=== PATIENT | male | born 1990 ===

== ENCOUNTER 2025-04-23 12:55 | Outpatient (REF) | payer OTHER, SELFPAY ==
--- NOTE | 2025-04-23 | EMG_ITS ---
Chief complaint: Numbness Reason for referral: CTS and Peripheral neuropathy Referred by:?Dr Bey Procedure done: Nerve conduction study upper extremities Bilateral median and ulnar motor and sensory studies were performed bilateral radial sensory study was performed an EMG needle examination was performed. Impression: [id number] bilateral median neuropathy across carpal tunnel MTDD
--- OUTSIDE RECORDS SUMMARY | 2025-04-23 15:14 | XMS_ITS | Clinical Summary ---
Author Organization [facility] Address [address] [place] [address] Care Team Providers Care Fishing Vessel Deckhand Name Role Phone Unavailable Primary Care Provider Unavailabl e Source Comments PLEASE NOTE, if this patient is a minor, it may be UNLAWFUL to discuss sensitive information that is contained in these records (such as FAMILY PLANNING, MENTAL HEALTH or SUBSTANCE ABUSE) with the minor patient's parent or other person without the patient's specific authorization.[facility] Social History Tobacco Use Types Packs/Day Years Used Date Smoking Tobacco: Never Assessed Social Connections Answer Date Recorded Social Connections and Isolation 0 02/08/2022 Financial Resource Strain Answer Date R ecorded Financial Resource Strain 0 2021 Stress Answer Date Recorded Stress 0 02/08/2022 Physical Activity Answer Date Recorded Physical Activity 0 02/08/2022 Food Insecurity Answer Date Recorded Food 0 02/08/2022 Transportation Needs Answer Date Record ed Transportation 0 02/08/2022 Housing Stability Answer Date Recorded Housing 0 02/08/2022 Safety and Environment Answer Date Jhon rded Safety 0 02/08/2022 Utilities Answer Date Recorded Utilities 0 02/08/2022 Employment Answer Date Recorded Employment 0 02/08/2022 Sex and Gender Information Value Date Recorded Sex Assigned at Not on file Legal Sex Male 12:02 PM PDT Gender Identity Not on file Sexual Orientation Not on file Plan of Treatment Not on file
--- OUTSIDE RECORDS SUMMARY | 2025-04-23 15:14 | XMS_ITS | Clinical Summary ---
Author Organization [facility] Address [address] [place] [address] Phone Care Team Providers Care Squaring Machine Operator Name Role Phone Pcp, Unknown Primary Care Provider Unavailabl e Allergies No known active allergies Social History Tobacco Use Types Packs/Day Years Used Date Smoking Tobacco: Never Assessed Education Answer Date Recorded Are you interested in more education? Not on tyler e 05/03/2024 Are you concerned about learning? Not on file 05/03/2024 No 05/03/2024 No 05/03/2024 Digital Access Answer Date Recorded No 05/03/2024 No 05/03/2024 Reliable internet access at home? Not on file 05/03/2024 Device with a working camera? Not on file Intimate Partner Violence Answer Date R ecorded Are you denied basic needs s uch as food, clothing, or medical care? No 05/02/2024 In the past 12 months have y ou been in a relationship with a person who hurts, threatens, or tries to control you? No 05/02/2024 Are you denied basic needs s uch as food, clothing, or medical care? No 05/02/2024 In the past 12 months have y ou been in a relationship with a person who hurts, threatens, or tries to control you? No 05/02/2024 Comments Unknown Sex and Gender Information Value Date Recorded Sex Assigned at Unknown 05/02/2024 5:00 PM EDT Legal Sex Male 4:38 PM EDT Gender Identity Male 05/02/2024 5:00 PM EDT Sexual Orientation Don't know 05/02/2024 5: 00 PM EDT Last Filed Vital Signs Vital Sign Reading Time Taken Comments Blood Pressure 135/82 05/02/2024 7:29 PM EDT Pulse 91 05/02/2024 7:29 PM EDT Temperature 36.9 C (98.4 F) 05/02/2024 7:29 PM EDT Respiratory Rate 18 05/02/2024 7:29 PM EDT Oxygen Saturation 99% 05/02/2024 7:29 PM EDT Inhaled Oxygen Concentration - - Weight 94.3 kg (208 lb) 05/02/2024 4:51 PM EDT Height 177.8 cm (5' 10 ) 05/02/2024 4:51 PM EDT Body Mass Index 29.84 05/02/2024 4:51 PM EDT Plan of Treatment Health Maintenance Due Date Last Done Comments Adult Td,Tdap Booster 1989 LIPID PANEL 1989 DEPRESSION SCREENING 2001 SMOKING Hx and SMOKELESS TOB ACCO SCREENING 2002 HEPATITIS C SCREENING 2007 HIV ONE-TIME SCREENING (18-6 5 YEARS) 2007 SCREENING FOR DIABETES 2024 INFLUENZA VACCINE (#1) 2025 COVID-19 VACCINE ( - 2023-2 5 season) 2025 HEPATITIS A VACCINES Aged Out No long er eligible based on patient's age to complete this topic HIB VACCINES Aged Out No longer eligi ble based on patient's age to complete this topic MENINGOCOCCAL VACCINES (ACWY) Aged Out No longer eligible based on patient's age to complete this topic MENINGOCOCCAL VACCINES (B) Aged Out N o longer eligible based on patient's age to complete this topic PNEUMOCOCCAL VACCINES (0-49 years) Aged Out No longer eligible based on patient's age to complete this topic Medical Devices Not on file Insurance [employer] HEALTH SAFETY NET FULL Member Subscriber Plan / Payer (Ef fective 2024-Present) Name:Suzi Yoan Relation to Subscriber:Self Name:ArcherYoan hutchins Payer ID:Not on file Group ID:Not on file Type:Medicaid Address: [address] [employer] [place] [address] LIMITED HEALTH SAFETY NET FULL Member Subscriber Plan / Payer (Ef fective 2024-Present) Name:Yoan Archer Relation to Subscriber:Self Name:Yoan Archer Payer ID:Not on file Group ID:Not on file Type:Medicaid Address: [address] [employer] [facility] FULL Member Subscriber Plan / Payer (Ef fective 2024-Present) Name:Yoan Archer Relation to Subscriber:Self Name:ArcherMoustaphaYoan Payer ID:Not on file Group ID:Not on file Type:Medicaid Address: [address] [facility] [employer] NET FULL Member Subscriber Plan / Payer (Ef fective 2024-Present) Name:Yoan Archer Relation to Subscriber:Self Name:Yoan Archer Payer ID:Not on file Group ID:Not on file Type:Medicaid [address] [facility] SAFETY NET FULL Member Subscriber Plan / Payer (Ef fective 2024-Present) Name:Yoan Archer Relation to Subscriber:Self Name:Yoan Archer Payer ID:Not on file Group ID:Not on file Type:Medicaid [address] [facility] LIMITED PENDING S[facility] FULL Member Subscriber Plan / Payer (Ef fective 2024-Present) Name:Yoan Archer Relation to Subscriber:Self Name:Yoan Archer Payer ID:Not on file Group ID:Not on file Type:Medicaid Address: [address] [employer] Care Teams Squaring Machine Operator Relationship Specialty Start Date End Date Pcp, Unknown PCP - General 05/02/24 Additional Source Comments The information contained in this document represents components of the legal health record. It is not the complete legal health record.[facility]
--- OUTSIDE RECORDS SUMMARY | 2025-04-23 15:14 | XMS_ITS | Encounter Summary ---
Author Organization [facility] Address [address] [place] [address] [place] [address] Phone Care Team Providers Care Rigger Name Role Phone Pcp, Unknown Primary Care Provider Unavailabl e Encounter Details Date Type Department Care Team (Late st Contact Info) Description 05/02/2024 Procedure Pass [facility], Ct Scan - [address] [address] Social History Tobacco Use Types Packs/Day Years [...] Don't know 05/02/2024 5: 00 PM EDT documented as of this encounter Functional Status * Calculated C-SSRS Risk Score (Lifetime/Recent) Answer Date of Assessment Author No Risk Indicated 05/02/2024 4:53 PM EDT Sofy Smith RN * [place] Suicide Severity Rating Scale (Screener/Recent Self-Report) Question Answer Date of Assessment Author 1. Wish to be (Past 1 Month) No 05/02/2024 4:53 PM EDT Suzanne Flores RN 2. Non-Specific Active Suicidal Thoughts (Past 1 Month) No 05/02/2024 4:53 PM EDT Suzanne Flores RN 6. Suicidal Behavior (Lifetime) No 05/02/2024 4:53 PM EDT Suzanne Flores RN documented as of this encounter Plan of Treatment Not on file documented as of this encounter Visit Diagnoses Not on filedocumented in this encounter Care Teams Rigger Relationship Specialty Start Date End Date Pcp, Unknown PCP - General 05/02/24 documented as of this encounter Additional Source Comments The information contained in this document represents components of the legal health record. It is not the complete legal health record.[facility]
--- OUTSIDE RECORDS SUMMARY | 2025-04-23 15:14 | XMS_ITS | Clinical Summary ---
Author Organization [facility] Address [address] [facility] 7 [place] [address] Care Team Providers Care Form Setter Steel Pan Forms Name Role Phone Unavailable Primary Care Provider Unavailabl e Social History Tobacco Use Types Packs/Day Years Used Date Smoking Tobacco: Never Assessed Sex and Gender Information Value Date Recorded Sex Assigned at Male 09/23/2023 9:45 AM EST Legal Sex Male 9:44 AM EST Gender Identity Male 09/23/2023 9:45 AM EST Sexual Orientation Straight 09/23/2023 9: 45 AM EST Plan of Treatment Health Maintenance Due Date Last Done Comments Depression Screening 1989 HIV Screening 1989 Lipid Panel 1989 SDOH Screening 1989 Disability Screening 1989 Alcohol/Substance Use Screening 2001 Tobacco Screening 2001 Family Planning (PISQ) 2004 HPV Vaccines (1 - Male 3-dos e series) 2004 Hepatitis C Screening 2007 DTaP/Tdap/Td Vaccines (1 - Tdap) 2008 Hepatitis B Vaccines (1 of 3 - 19+ 3-dose series) 2008 COVID-19 Vaccine (1 - 2023-2 5 season) 2025 Influenza Vaccine (#1) 2025 Zoster Vaccines (1 of 2) 2039 RSV Patients and Pa tients Aged 60 years or older (1 - 1-dose 75+ series) 2064 HIB Vaccines Aged Out No longer eligi ble based on patient's age to complete this topic Hepatitis A Vaccines Aged Out No long er eligible based on patient's age to complete this topic IPV Vaccines Aged Out No longer eligi ble based on patient's age to complete this topic Meningococcal B Vaccine Aged Out No l onger eligible based on patient's age to complete this topic Meningococcal Vaccine Aged Out No lucina bill eligible based on patient's age to complete this topic Pneumococcal Vaccine: Pediat rics (0 to 5 Years) and At-Risk Patients (6 to 49) Years Aged Out No longer eligible b ased on patient's age to complete this topic RSV under 20 months Aged Out No longe r eligible based on patient's age to complete this topic Rotavirus Vaccines Aged Out No longer eligible based on patient's age to complete this topic Insurance [address] [address]
--- OUTSIDE RECORDS SUMMARY | 2025-04-23 15:14 | XMS_ITS | Encounter Summary ---
Author Organization [facility] Address [address] [place] [address] [place] [address] Phone Care Team Providers Care Trimmer And Reinforcer Name Role Phone Pcp, Unknown Primary Care Provider Unavailabl e Encounter Details Date Type Department Care Team (Late st Contact Info) Description 05/02/2024 Procedure Pass [facility], Ct Scan - [address] [address] Social History Tobacco Use Types Packs/Day Years [...] 4:53 PM EDT Sofy Smith RN * [place] Suicide Severity Rating Scale (Screener/Recent Self-Report) Question [...] on filedocumented in this encounter Care Teams Trimmer And Reinforcer Relationship Specialty Start Date End Date Pcp, Unknown PCP - General 05/02/24 documented as of this encounter Additional Source Comments The information contained in this document represents components of the legal health record. It is not the complete legal health record.[facility]
== END 2025-04-23 12:56 | disposition home or self-care (01) ==
LOC: HO.NEURO 12:55
PROVIDERS: Visit Provider Psychiatry & Neurology Neurology
DX: G56.03 Carpal tunnel syndrome, bilateral upper limbs (principal); G62.9 Polyneuropathy, unspecified
CPT/HCPCS: 95886; 95913

== ENCOUNTER → 2025-04-23 13:05 | Outpatient (BNV) | payer OTHER, SELFPAY | PROVIDERS: Visit Provider Psychiatry & Neurology Neurology | DX: G56.03 Carpal tunnel syndrome, bilateral upper limbs (principal) | CPT/HCPCS: 95886; 95913 ==

== ENCOUNTER 2025-05-16 11:10 | Outpatient (AMB) | payer OTHER, SELFPAY ==
--- NOTE | 2025-05-16 11:15 | MHC.OFFVIS ---
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 He reports experiencing pain, cramps, and weakness in both hands, a condition that has been ongoing for two years. Previously, the symptoms have included disruptions to his sleep patterns. The intensity of the pain is such that it extends to the elbows, notably aggravated by hand-related activities, while corrective efforts with a wrist splint have offered some relief. The patient is employed as a dedicated regional driver, which poses a risk of aggravating his symptoms. The patient is managing Type 2 Diabetes Mellitus, indicating a relationship between improved diabetes management and symptom alleviation. He notes that attaining control over his blood sugars has positively impacted both his condition and his overall well-being. Review of Systems Const Details: - Musculoskeletal: Reports pain, cramps, and weakness in both hands. - Neurological: Reports nocturnal awakenings due to hand pain and symptoms of carpal tunnel syndrome, including pain extending from wrist to elbow. - Endocrine: Reports a history of Type 2 Diabetes Mellitus, currently feeling better due to medication. Physical Exam Neuro Other: Mental Status: Alert and oriented to person, place, and time. Normal attention. Normal spontaneous speech, fluency, and comprehension. No obvious issues with mood and memory. Affect is appropriate. Cranial Nerves: CN II: Visual escoto full to confrontation, visual acuity intact. CN III, IV, : Pupils equal, round, reactive to light and accommodation. Extraocular movements are normal. CN V: Facial sensation is normal. CN VII: Facial movements symmetrical. CN VIII: Hearing intact to bedside conversation is normal. CN IX, X: Palate elevates symmetrically. CN XI: Shoulder shrug and head turn symmetrical. CN XII: Tongue midline without atrophy or fasciculations. Motor: No obvious atrophy. DTRs are trace. Extrapyramidal: Full facial expressions and blinking. No rigidity. Movements are appropriate with no tremor or abnormality. Speech: Normal; no dysarthria or tremor. Assessment & Plan Assessment & Plan (1) Carpal tunnel syndrome: Comment: [place] [facility]: Mild to mod b/l median neuropathy across CT Code(s): G56.00 - Carpal tunnel syndrome, unspecified upper limb Category: Medical Qualifiers: Laterality: bilateral Qualified Code(s): G56.03 - Carpal tunnel syndrome, bilateral upper limbs Plan Impression: Mild to moderate b/l Carpal tunnel syndrome with type II DM Rec: a: Continue diabetic meds b: Avoid repetitive hand motion c: Wrist splints at night as needed. For now, no further treatment as his symptoms were already better after sugar was better controlled. I discussed the diagnosis of bilateral carpal tunnel syndrome with the patient, noting the mild improvement in symptoms and the utility of wrist splints as a conservative measure. We talked about the potential need for injections if symptoms become unmanageable. We reviewed his Type 2 Diabetes Mellitus management and its relationship with nerve health, stressing that improved diabetes control can mitigate carpal tunnel symptoms. The benefits and necessity of good blood sugar regulation were addressed, recommending routine monitoring. Follow-up is planned for six months, with instructions to return earlier if symptoms worsen. Coding Level of Care Code New Pt Level 3 (92301) Diagnoses Bilateral carpal tunnel syndrome G56.03 Laterality: bilateral
--- OUTSIDE RECORDS SUMMARY | 2025-05-16 13:05 | XMS_ITS | Clinical Summary ---
Author Organization [facility] Address [address] [place] [address] Care Team Providers Care Fourchette Sewer Name Role Phone Unavailable Primary Care Provider [...]
--- OUTSIDE RECORDS SUMMARY | 2025-05-16 13:05 | XMS_ITS | Encounter Summary ---
Author Organization [facility] Address [address] [place] [address] [place] [address] Phone Care Team Providers Care Car Mechanic Name Role Phone Pcp, Unknown Primary Care Provider Unavailabl e Encounter Details Date Type Department Care Team (Late st Contact Info) Description 05/02/2024 Procedure Pass [facility], Ct Scan - [address] [address] Social History Tobacco Use Types Packs/Day Years [...] 4:53 PM EDT Sofy Smith RN * [place] Suicide Severity Rating Scale (Screener/Recent Self-Report) Question [...] on filedocumented in this encounter Care Teams Car Mechanic Relationship Specialty Start Date End Date Pcp, Unknown PCP - General 05/02/24 documented as of this encounter Additional Source Comments The information contained in this document represents components of the legal health record. It is not the complete legal health record.[facility]
--- OUTSIDE RECORDS SUMMARY | 2025-05-16 13:05 | XMS_ITS | Clinical Summary ---
Author Organization [email or web address] Address [address] [facility] 7 [place] [address] Care Team Providers Care Resolute Professional Name Role Phone Unavailable Primary Care Provider [...] patient's age to complete this topic [place] [place] [address]
--- OUTSIDE RECORDS SUMMARY | 2025-05-16 13:05 | XMS_ITS | Encounter Summary ---
Author Organization [facility] Address [address] [place] [address] [place] [phone] Phone Care Team Providers Care Detention Attendant Name Role Phone Pcp, Unknown Primary Care Provider Unavailabl e Encounter Details Date Type Department Care Team (Late st Contact Info) Description 05/02/2024 Procedure Pass [facility], Ct Scan - [address] [address] Social History Tobacco Use Types Packs/Day Years [...] 4:53 PM EDT Sofy Smith RN * [place] Suicide Severity Rating Scale (Screener/Recent Self-Report) Question [...] on filedocumented in this encounter Care Teams Detention Attendant Relationship Specialty Start Date End Date Pcp, Unknown PCP - General 05/02/24 documented as of this encounter Additional Source Comments The information contained in this document represents components of the legal health record. It is not the complete legal health record.[facility]
--- OUTSIDE RECORDS SUMMARY | 2025-05-16 13:05 | XMS_ITS | Clinical Summary ---
Author Organization [facility] Address [address] [place] [address] Phone Care Team Providers Care Civil Transportation Engineer Name Role Phone Pcp, Unknown Primary Care [...] topic Medical Devices Not on file Insurance [employer] HEALTH SAFETY NET FULL Member Subscriber Plan / Payer (Ef fective 2024-Present) Name:Suzi Yoan Relation to Subscriber:Self Name:ArcherYoan hutchins Payer ID:Not on file Group ID:Not on file Type:Medicaid Address: [address] [employer] [address] [address] LIMITED HEALTH SAFETY NET FULL Member Subscriber Plan / Payer (Ef fective 2024-Present) Name:Yoan Archer Relation to Subscriber:Self Name:Yoan Archer Payer ID:Not on file Group ID:Not on file Type:Medicaid Address: [address] [employer] [facility] FULL Member Subscriber Plan / Payer (Ef fective 2024-Present) Name:Yoan Archer Relation to Subscriber:Self Name:ArcherMoustaphaYoan Payer ID:Not on file Group ID:Not on file Type:Medicaid Address: [address] DIRECT [facility] HEALTH SAFET[employer] NET FULL Member Subscriber Plan / Payer (Ef fective 2024-Present) Name:Yoan Archer Relation to Subscriber:Self Name:Yoan Archer Payer ID:Not on file Group ID:Not on file Type:Medicaid [address] [facility] SAFETY NET FULL Member Subscriber Plan / Payer (Ef fective 2024-Present) Name:Yoan Archer Relation to Subscriber:Self Name:Yoan Archer Payer ID:Not on file Group ID:Not on file Type:Medicaid [address] [facility] FULL Member Subscriber Plan / Payer (Ef fective 2024-Present) Name:Yoan Archer Relation to Subscriber:Self Name:Yoan Archer Payer ID:Not on file Group ID:Not on file Type:Medicaid Address: [address] [employer] Care Teams Civil Transportation Engineer Relationship Specialty Start Date End Date Pcp, Unknown PCP - General 05/02/24 Additional Source Comments The information contained in this document represents components of the legal health record. It is not the complete legal health record.[facility]
== END 2025-05-16 11:39 | disposition home or self-care (01) ==
LOC: HO.HSM 11:11
PROVIDERS: Visit Provider Psychiatry & Neurology Neurology
DX: G56.03 Carpal tunnel syndrome, bilateral upper limbs (principal)
CPT/HCPCS: 99213